=== PATIENT | female | born 1965 | race Caucasian/White ===

== ENCOUNTER 2022-08-26 10:30 | Inpatient (IN) ==
[2022-08-26] MEDS ORDERED: TYLENOL 325 MG TAB PO ONE ×2 (12:01→14:06)
[2022-08-26] MEDS ORDERED: BENADRYL CAP 50 MG PO PRN (12:02)
[2022-08-26 12:09] LABS: LYMPHOCYTES # (AUTO) 0.9 X10^3/uL (1.3-2.9); MEAN PLATELET VOLUME 8.6 fL (7.4-11.0); NEUTROPHILS # (AUTO) 1.8 x10^3/uL (2.2-4.8); PLATELET COUNT 222 X10^3/uL (150.0-450.0); WHITE BLOOD COUNT 2.9 X10^3/uL (3.6-10.0)
[2022-08-26 12:13] LABS: BASOPHILS % (AUTO) 0.7 % (0.2-1.0); EOSINOPHILS % (AUTO) 0.4 % (0.9-2.9); LYMPHOCYTES % (AUTO) 29.7 % (21.0-51.0); MEAN CORPUSCULAR HGB CONC 26.4 g/dL (33.0-35.0); MEAN CORPUSCULAR VOLUME 52.8 fL (80.0-100.0); MONOCYTES # (AUTO) 0.1 x10^3/uL (0.3-0.8); MONOCYTES % (AUTO) 5.1 % (0.0-13.0); NEUTROPHILS % (AUTO) 64.1 % (42.0-75.0); RED BLOOD COUNT 2.76 X10^6/uL (3.5-5.4); RED CELL DISTRIBUTION WIDTH 21.5 % (11.6-16.5); RETICULOCYTE % 2.68 % (0.8-2.2)
[2022-08-26 12:15] LABS: HEMATOCRIT 14.6 % (36.0-47.0); HEMOGLOBIN 3.8 g/dL (12.0-16.0)
[2022-08-26 12:21] LABS: ALANINE AMINOTRANSFERASE 17 Units/L (12-78); ALBUMIN 3.6 g/dL (3.4-5.0); ALKALINE PHOSPHATASE 70 Units/L (46-116); ASPARTATE AMINO TRANSFERASE 11 Units/L (15-37); BLOOD UREA NITROGEN 11 mg/dL (7-18); CARBON DIOXIDE 25.1 mmol/L (21-32); CHLORIDE 108 mmol/L (98-107); COR NA(FOR HYPERGLY) 143 mmol/L (136-145); CREATININE 1.01 mg/dL (0.55-1.02); GLUCOSE 116 mg/dL (65-99); POTASSIUM 3.3 mmol/L (3.5-5.1); SODIUM 143 mmol/L (136-145); TOTAL PROTEIN 6.6 g/dL (6.4-8.2); eGFR NON BLACK RACES > 60 (>60)
[2022-08-26 12:26] LABS: ANISOCYTOSIS 1+; HYPOCHROMASIA 3+; MICROCYTOSIS 3+; PLATELET MORPHOLOGY COMMENT NORMAL (NORMAL); POIKILOCYTOSIS 1+; SCHISTOCYTES PRESENT; TARGET CELLS PRESENT
[2022-08-26 13:10] LABS: IRON 8 ug/dL (50-175); TOTAL IRON BINDING CAPACITY 502 ug/dL (250-450)
[2022-08-26] MEDS ORDERED: POTASSIUM CHL 40 MEQ/NS 0.45% 500 ML IV PRN (13:53)
[2022-08-26] MEDS ORDERED: POTASSIUM CHL 60 MEQ/NS 0.45% 500 ML IV PRN (13:53)
[2022-08-26] MEDS ORDERED: MICRO K EXTEN CAP 10 MEQ PO PRN (13:53)
[2022-08-26] MEDS ORDERED: K-RIDER 10 MEQ/NS 100 ML 10 MEQ/100 ML BAG IV PRN (13:53)
[2022-08-26] MEDS ORDERED: K-DUR TAB 20 MEQ PO PRN (13:53)
[2022-08-26] MEDS ORDERED: POTASSIUM CHLORIDE LIQ 20 MEQ UDC PO PRN (13:53)
[2022-08-26] MEDS ORDERED: KLOR-CON PO PRN (13:53)
[2022-08-26] MEDS ORDERED: BENADRYL CAP/TAB 25 MG PO ONE (14:07)
[2022-08-26] MEDS ORDERED: NS 500 ML IV 500 ML IV ONE ×2 (14:08→17:35)
[2022-08-26] MEDS: PROTONIX INJ 40 MG VIAL IVP SCH ×2 (14:21→20:21)
[2022-08-26] MEDS: PEPCID 20 MG VIAL 20 MG in NS 50 ML IV 50 ML IV SCH ×2 (14:23→20:21)
[2022-08-26] MEDS: NS 1,000 ML IV 1,000 ML IV SCH (14:23)
[2022-08-26 16:15] VITALS: BMI 30.9
[2022-08-26] MEDS: HEMOCYTE-PLUS PO SCH (20:21)
[2022-08-27] MEDS ORDERED: NS 100 ML IV 100 ML ONE (01:27)
[2022-08-27] MEDS: NS 1,000 ML IV 1,000 ML IV SCH (01:37)
[2022-08-27] MEDS: MAGNESIUM SULFATE 1 GRAM/100 mL PREMIX 1 G/100 ML BAG IV PRN ×2 (04:04→05:00)
[2022-08-27 06:10] LABS: BASOPHILS % (AUTO) 0.6 % (0.2-1.0); EOSINOPHILS # (AUTO) 0.1 x10^3/uL (0.0-0.2); EOSINOPHILS % (AUTO) 1.6 % (0.9-2.9); HEMATOCRIT 26.8 % (36.0-47.0); LYMPHOCYTES # (AUTO) 1.1 X10^3/uL (1.3-2.9); MEAN CORPUSCULAR HEMOGLOBIN 21.5 pg (27.0-34.0); MEAN CORPUSCULAR HGB CONC 31.8 g/dL (33.0-35.0); MEAN CORPUSCULAR VOLUME 67.5 fL (80.0-100.0); MEAN PLATELET VOLUME 8.9 fL (7.4-11.0); MONOCYTES # (AUTO) 0.3 x10^3/uL (0.3-0.8); MONOCYTES % (AUTO) 6.4 % (0.0-13.0); NEUTROPHILS # (AUTO) 2.9 x10^3/uL (2.2-4.8); NEUTROPHILS % (AUTO) 66.4 % (42.0-75.0); PLATELET COUNT 181 X10^3/uL (150.0-450.0); RED BLOOD COUNT 3.97 X10^6/uL (3.5-5.4); RED CELL DISTRIBUTION WIDTH 33.4 % (11.6-16.5); WHITE BLOOD COUNT 4.4 X10^3/uL (3.6-10.0)
[2022-08-27 06:24] LABS: HEMOGLOBIN 8.5 g/dL (12.0-16.0)
[2022-08-27 06:34] LABS: ALANINE AMINOTRANSFERASE 14 Units/L (12-78); ALBUMIN 3.3 g/dL (3.4-5.0); ALKALINE PHOSPHATASE 64 Units/L (46-116); ASPARTATE AMINO TRANSFERASE 16 Units/L (15-37); BLOOD UREA NITROGEN 11 mg/dL (7-18); CALCIUM 7.9 mg/dL (8.5-10.1); CHLORIDE 112 mmol/L (98-107); COR CA(FOR HYPOALB) 8.5 mg/dL (8.5-10.1); CREATININE 0.82 mg/dL (0.55-1.02); GLUCOSE 97 mg/dL (65-99); MAGNESIUM 2.2 mg/dL (2.0-2.9); POTASSIUM 3.9 mmol/L (3.5-5.1); SODIUM 145 mmol/L (136-145); eGFR NON BLACK RACES > 60 (>60)
[2022-08-27 06:36] LABS: ANISOCYTOSIS 3+; HYPOCHROMASIA 2+; MICROCYTOSIS 1+; PLATELET MORPHOLOGY COMMENT NORMAL (NORMAL)
[2022-08-27 06:37] LABS: OVALOCYTES SLIGHT; SCHISTOCYTES SLIGHT; TEAR DROP CELLS SLIGHT
[2022-08-27 08:07] VITALS: BP 124/67; PULSE 72; TEMP 98.6
[2022-08-27] MEDS: PROTONIX INJ 40 MG VIAL IVP SCH (08:50)
[2022-08-27] MEDS: PEPCID 20 MG VIAL 20 MG in NS 50 ML IV 50 ML IV SCH (08:51)
[2022-08-27] MEDS: HEMOCYTE-PLUS PO SCH (08:51)
--- NOTE | 2022-08-27 10:34 | DR.CARTERS ---
Short Stay Summary - Admission Date Date of Admission: 08/26/22 - Discharge Date Discharge Date: 08/27/22 - Admission Diagnoses (1) Symptomatic anemia Status: Acute (2) Generalized weakness Status: Acute - Discharge Medications Discharge Medications: Home Medication List B [id number]-[id number] 106 mg iron-1 mg tablet (Ferrocite Plus) 1 tab PO DAILY #30 tabs 08/27/22 [Rx] famotidine 40 mg tablet 40 mg PO BID #60 tabs 08/27/22 [Rx] pantoprazole 40 mg tablet,delayed release 40 mg PO BID #60 tabs 08/27/22 [Rx] Prescriptions: B [id number]-U-[id number]-[id number] [Ferrocite Plus] Matthias Rockwell famotidine Matthias Rockwell pantoprazole Matthias Rockwell - Hospital Course Hospital Course: IS A 56 YEAR OLD PATIENT OF KARY ROE. SHE REPORTED BEING SEEN IN HIS OFFICE YESTERDAY DUE TO SEVERE WEAKNESS AND DIZZINESS. SHE WAS SENT FOR OUTPATIENT LABS. HER HEMOGLOBIN WAS REPORTED TO BE 4.2 AND HCT 16.1. DECISION WAS MADE TO ADMIT THE PATIENT TO THE HOSPITAL FOR FURTHER EVALUATION AND TREATMENT OF SYMPTOMATIC ANEMIA. HER ONLY REPORTED MEDICAL HISTORY IS IRON DEFICIENCY ANEMIA. SHE DOES NOT CURRENTLY TAKE ANY MEDICATIONS. SHE DENIES PRESENCE OF BLOOD IN STOOL OR ANY VAGINAL BLEEDING. ON ARRIVAL TO THE HOSPITAL, VITALS WERE 98.3-116-20-97%-133/60. LABS WERE REPEATED. WBC 2.9, RBC 2.76, HGB 3.8, HCT 14.6, PLT COUNT 222, SODIUM 143, POTASSIUM 3.3, CHLORIDE 108, CARBON DIOXIDE 25.1, BUN 11, CREATININE 1.01, GLUCOSE 116, CALCIUM 8.0, MAGNESIUM 1.8, IRON 8, TIBC 502, TOTAL BILI 0.80, AST 11, ALT 17, ALK PHOS 70, TOTAL PROTEIN 6.6, ALBUMIN 3.6, VITAMIN B12 336. WE OBTAINED A TYPE AND SCREEN AND CROSSMATCHED FOUR UNITS OF PACKED RED BLOOD CELLS. WE PLANNED TO TRANSFUSE FOUR UNITS WHEN THEY WERE AVAILABLE. SHE WAS STARTED ON NORMAL SALINE AT 80 ML/HR, FAMOTIDINE 20MG Q12H, PROTONIX 40MG IV BID, PROTONIX 40MG IV BID, HEMOCYTE PLUS DAILY, AND THE POTASSIUM AND MAGNESIUM PROTOCOLS. WE WILL PREMEDICATE WITH BENADRYL 25MG AND TYLENOL 650MG BEFORE TRANSFUSION OF BLOOD. WE PLANNED TO CONSULT , MEDICATION TECHNICIAN. PATIENT REFUSED CONSULT AND STATED THAT SHE ALREADY HAD A REFERRAL SENT IN TO DR.RONNIE CASON IN [place], [place]. SHE PREFERRED TO SEE HIM AN OUTPATIENT. WE ORDERED STOOLS FOR OCCULT BLOOD. OTHERWISE, WE PLANNED TO FOLLOW-UP WITH AM LABS AND CONTINUE TO MONITOR. ON THE MORNING FOLLOWING ADMISSION, PATIENT IS ALERT AND ORIENTED, LYING IN BED. SHE HAS RECEIVED FOUR UNITS OF PACKED RED BLOOD CELLS SINCE ADMISSION. SHE REPORTS FEELING MUCH BETTER AND DENIES CURRENT COMPLAINS. SHE IS REQUESTING DISCHARGE HOME. ON EXAMINATION, HEART IS REGULAR IN RATE AND RHYTHM. BILATERAL LUNGS ARE CLEAR TO AUSCULTATION. ABDOMEN IS ROUND, SOFT, AND NON-TENDER WITH NORMAL BOWEL SOUNDS NOTED IN ALL QUADRANTS. GOOD MOVEMENT TO UPPER AND LOWER EXTREMITIES WITH NO EDEMA NOTED. HER VITALS THIS MORNING ARE: 98.6-72-16-98%-124/67. LABS WERE OBTAINED. WBC 4.4, RBC 3.97, HGB 8.5, HCT 26.8, PLT COUNT 181, SODIUM 145, POTASSIUM 3.9, CHLORIDE 112, CARBON DIOXIDE 22.0, BUN 11, CREATININE 0.82, GLUCOSE 97, CALCIUM 7.9, MAGNESIUM 2.2, TOTAL BILI 2.90, AST 16, ALT 14, ALK PHOS 64, TOTAL PROTEIN 6.0, ALBUMIN 3.3. WE PLANNED FOR DISCHARGE. INSTRUCTIONS FOR MEDICATIONS AND FOLLOW-UP WERE DISCUSSED WITH PATIENT. SHE VERBALIZED UNDERSTANDING OF ALL ORDERS. WE WILL GIVE HER NEW PRESCRIPTIONS FOR FAMOTIDINE 40MG BID, PANTOPRAZOLE 40MG BID, AND HEMOCYTE PLUS 1 TABLET DAILY. WE WILL HAVE HER FOLLOW UP WITH [facility] AND DR.RONNIE CASON, MEDICATION TECHNICIAN. SHE WILL BE DISCHARGE HOME WITH FAMILY IN STABLE CONDITION. TIME SPENT ON CLINICAL ASSESSMENT, REVIEWING LABS AND IMAGING, DECISION MAKING, DISCHARGE INSTRUCTIONS, PREPARING DISCHARGE PAPERS, AND DOCUMENTATION GREATER THAN 45 MINUTES. - Discharge Plan Disposition: 01 HOME, SELF-CARE Condition: Stable Prescriptions: B [id number]-[id number] [Ferrocite Plus] 1 tab PO DAILY #30 tabs famotidine 40 mg PO BID #60 tabs pantoprazole 40 mg PO BID #60 tabs - Follow up/Referrals Follow up/Referrals: KARY ROE [Primary Care Provider] - 09/03/22 10:00 am - Instructions Instructions: Anemia Additional Instructions: DIET TOLERATED. ACTIVITY TOLERATED. Forms: Excuse From Work or School
== END 2022-08-27 11:45 | disposition home or self-care (01) | DRG 812 ==
LOC: MED/SURG 11:10
PROVIDERS: ADMIT Internal Medicine; ATTEND Internal Medicine
DX: R42 Dizziness and giddiness; D64.89 Other specified anemias; R53.1 Weakness

== ENCOUNTER 2024-03-22 10:50 | Observation (INO) ==
[2024-03-22 12:51] LABS: BASOPHILS # (AUTO) 0.1 X10^3/uL (0.0-0.1); BASOPHILS % (AUTO) 1.2 % (0.2-1.0); EOSINOPHILS % (AUTO) 0.1 % (0.9-2.9); LYMPHOCYTES # (AUTO) 0.9 X10^3/uL (1.3-2.9); LYMPHOCYTES % (AUTO) 19.5 % (21.0-51.0); MEAN CORPUSCULAR HEMOGLOBIN 19.4 pg (27.0-34.0); MEAN CORPUSCULAR HGB CONC 30.3 g/dL (33.0-35.0); MEAN CORPUSCULAR VOLUME 63.9 fL (80.0-100.0); MEAN PLATELET VOLUME 9.3 fL (7.4-11.0); MONOCYTES # (AUTO) 0.2 x10^3/uL (0.3-0.8); NEUTROPHILS # (AUTO) 3.6 x10^3/uL (2.2-4.8); NEUTROPHILS % (AUTO) 74.2 % (42.0-75.0); PLATELET COUNT 281 X10^3/uL (150.0-450.0); RED BLOOD COUNT 3.11 X10^6/uL (3.5-5.4); RED CELL DISTRIBUTION WIDTH 17.6 % (11.6-16.5); WHITE BLOOD COUNT 4.8 X10^3/uL (3.6-10.0)
[2024-03-22 12:54] LABS: HEMATOCRIT 19.9 % (36.0-47.0)
[2024-03-22 12:58] LABS: ALANINE AMINOTRANSFERASE 17 Units/L (12-78); ALBUMIN 3.3 g/dL (3.4-5.0); ALKALINE PHOSPHATASE 100 Units/L (46-116); ASPARTATE AMINO TRANSFERASE 12 Units/L (15-37); BLOOD UREA NITROGEN 11 mg/dL (7-18); CALCIUM 8.3 mg/dL (8.5-10.1); CARBON DIOXIDE 25.5 mmol/L (21-32); CHLORIDE 107 mmol/L (98-107); COR CA(FOR HYPOALB) 8.9 mg/dL (8.5-10.1); COR NA(FOR HYPERGLY) 143 mmol/L (136-145); CREATININE 0.89 mg/dL (0.55-1.02); GLUCOSE 113 mg/dL (65-99); POTASSIUM 3.9 mmol/L (3.5-5.1); SODIUM 143 mmol/L (136-145); TOTAL PROTEIN 6.9 g/dL (6.4-8.2); eGFR NON BLACK RACES > 60 (>60)
[2024-03-22 13:12] LABS: ANISOCYTOSIS SLIGHT; HYPOCHROMASIA 3+; MICROCYTOSIS 2+; PLATELET MORPHOLOGY COMMENT NORMAL (NORMAL)
--- NOTE | 2024-03-22 13:15 | EKG ---
Test Reason : Hgb 6.0 Blood Pressure : */* mmHG Vent. Rate : 86 BPM Atrial Rate : 86 BPM P-R Int : 160 ms QRS Dur : 76 ms QT Int : 364 ms P-R-T Axes : 23 62 47 degrees QTc Int : 435 ms Normal sinus rhythm Normal ECG No previous ECGs available Confirmed by Bhupinder Galeas MD ([id number]) on 03/23/2024 7:27:53 AM Referred By: Confirmed By: Bhupinder Galeas MD
--- NOTE | 2024-03-22 13:58 | DR.DIZZY ---
HPI Time seen Time Seen by Provider: 03/22/24 13:31 PCP Primary Care Physician: LILIAN MCKEON Complaint Chief Complaint:: Patient states she has been feeling weak for a couple of weeks now states last time she felt like this her hemoglobin was low. patient states she just wants to make sure its not low again. patient denies any other symptoms. COVID-19 Coronavirus risk:travel/contact w/high risk person: No Has patient experienced Coronavirus symptoms: No Nurses Notes Reviewed Nurses Notes Review: Yes Source History Provided: Patient Mode of Arrival Mode of Arrival: Ambulatory Timing Onset of Chief Complaint: 03/02/24 Context Stroke Symptoms: None PMH PMH Past Medical History: Yes Past Medical History: Anemia Past Surgical History: No Family History History of Family Medical Conditions: No Social History Does patient currently use any type of tobacco product: No Have you used tobacco products in the last 12 months: No Type of Tobacco Use: None Does any household member use tobacco: No Alcohol Use: None Do you use any recreational Drugs:: No Lives With: Family Lives Where: Home Travel Risk Coronavirus risk:travel/contact w/high risk person: No Has patient experienced Coronavirus symptoms: No Infectious screening In the last 2 months have you had wt loss of >10#?: NO Have you had fever, night sweats or hemotysis?: No Have you traveled outside the country in the last 6 months?: No Isolation: Standard ROS Review of Systems All Other Systems: Reviewed and Negative (See HPI, otherwise negative) PE Vital Signs Vitals: Vital Signs Temperature 98 F Pulse Rate 109 Respiratory Rate 18 Blood Pressure 126/70 O2 Sat by Pulse Oximetry 100 General General Appearance: Alert Head Head Exam: Normal Inspection Eyes Eye exam: Normal Appearance ENT ENT Exam: Normal Exam Neck Neck Exam: Normal Inspection Chest Chest Inspection: Normal Inspection Respiratory Respiratory Exam: Normal Lung Sounds Bilat Cardiovascular Cardiovascular Exam: Regular Rate Abdominal Exam Abdominal Exam: Normal Inspection Extremeties Extremities Exam: Normal Inspection Neurologic Neurological Exam: Alert, Oriented X3 and CN II-XII Intact; negative Motor Sensory Deficit Skin Skin Exam: Warm MDM Differential Diagnosis Differential Diagnosis Comment: anemia COURSE Reevaluation 1st: Improved Consultation Called: 14:01 Call Returned: 14:01 Education/Counseling Education/Counseling: Patient and Family ROR Labs Reviewed Laboratory Results Reviewed?: Yes 03/22/24 12:33 03/22/24 12:33 Laboratory: WBC 4.8 X10^3/uL (3.6-10.0) 03/22/24 12:33 RBC 3.11 X10^6/uL (3.5-5.4) L 03/22/24 12:33 Hgb 6.0 g/dL (12.0-16.0) L* 03/22/24 12:33 Hct 19.9 % (36.0-47.0) L* 03/22/24 12:33 MCV 63.9 fL (80.0-100.0) L 03/22/24 12:33 MCH 19.4 pg (27.0-34.0) L 03/22/24 12:33 MCHC 30.3 g/dL (33.0-35.0) L 03/22/24 12:33 RDW 17.6 % (11.6-16.5) H 03/22/24 12:33 Plt Count 281 X10^3/uL (150.0-450.0) 03/22/24 12:33 Plt Count Comment Adequate (ADEQUATE) 03/22/24 12:33 MPV 9.3 fL (7.4-11.0) 03/22/24 12:33 Neut % (Auto) 74.2 % (42.0-75.0) 03/22/24 12:33 Lymph % (Auto) 19.5 % (21.0-51.0) L 03/22/24 12:33 [place] % (Auto) 5.0 % (0.0-13.0) 03/22/24 12:33 Eos % (Auto) 0.1 % (0.9-2.9) L 03/22/24 12:33 Baso % (Auto) 1.2 % (0.2-1.0) H 03/22/24 12:33 Neut # (Auto) 3.6 x10^3/uL (2.2-4.8) 03/22/24 12:33 Lymph # (Auto) 0.9 X10^3/uL (1.3-2.9) L 03/22/24 12:33 [place] # (Auto) 0.2 x10^3/uL (0.3-0.8) L 03/22/24 12:33 Eos # (Auto) 0.0 x10^3/uL (0.0-0.2) 03/22/24 12:33 Baso # (Auto) 0.1 X10^3/uL (0.0-0.1) 03/22/24 12:33 Absolute Nucleated RBC 0.3 /100WBC 03/22/24 12:33 Plt Morphology Comment Normal (NORMAL) 03/22/24 12:33 RBC Morphology Abnormal (NORMAL) A 03/22/24 12:33 Hypochromasia 3+ A 03/22/24 12:33 Anisocytosis Slight A 03/22/24 12:33 Microcytosis 2+ A 03/22/24 12:33 APTT 23.0 SECONDS (22.9-36.5) 03/22/24 12:30 PTT Comment - 03/22/24 12:30 Sodium 143 mmol/L (136-145) 03/22/24 12:33 Corrected Sodium 143 mmol/L (136-145) 03/22/24 12:33 Potassium 3.9 mmol/L (3.5-5.1) 03/22/24 12:33 Chloride 107 mmol/L (98-107) 03/22/24 12:33 Carbon Dioxide 25.5 mmol/L (21-32) 03/22/24 12:33 BUN 11 mg/dL (7-18) 03/22/24 12:33 Creatinine 0.89 mg/dL (0.55-1.02) 03/22/24 12:33 Est GFR (MDRD) Af Amer > 60 (>60) 03/22/24 12:33 Est GFR (MDRD) Non-Af > 60 (>60) 03/22/24 12:33 Glucose 113 mg/dL (65-99) H 03/22/24 12:33 Calcium 8.3 mg/dL (8.5-10.1) L 03/22/24 12:33 Corrected Calcium 8.9 mg/dL (8.5-10.1) 03/22/24 12:33 Total Bilirubin 0.60 mg/dL (0.2-1.0) 03/22/24 12:33 AST 12 Units/L (15-37) L 03/22/24 12:33 ALT 17 Units/L (12-78) 03/22/24 12:33 Alkaline Phosphatase 100 Units/L (46-116) 03/22/24 12:33 Total Protein 6.9 g/dL (6.4-8.2) 03/22/24 12:33 Albumin 3.3 g/dL (3.4-5.0) L 03/22/24 12:33 Globulin 3.6 g/dL (2.5-4.5) 03/22/24 12:33 Albumin/Globulin Ratio 0.9 Ratio (1.1-2.1) L 03/22/24 12:[address]: Nonsp Opioid Opioid Risk Tool Age (Kam box if 16-45): No History of Preadolescent Sexual Abuse: No Total: 0 Total Score Risk Category: Low Risk Copyright: Warren GEORGE predicting aberrant behaviors Discharge Plan Diagnosis Discharge Problem: Symptomatic anemia Discharge Plan Patient Disposition: ADMITTED INPATIENT Condition: Stable Prescriptions: No Action pantoprazole 40 mg Tablet,Delayed Release (Dr/Ec) 40 mg PO BID Qty: 60 1RF Rx Instructions: TAKE ONE TABLET TWICE A DAY Health Concerns: Post Hospitalization: new medications and changes needed to prevent readmission or further decline. Pt educated and given instructions on all concerns. Plan of Treatment: Continue with present treatment and follow up plan. Pt is to keep follow up appointment as instructed and take medications as ordered. Follow ups/Referrals Follow ups/Referrals: LILIAN MCKEON V [Primary Care Provider] - 3 days
[2024-03-22 15:50] VITALS: BMI 32.9
[2024-03-22] MEDS: NS 250 ML IV 25 ML IV PRN (16:55)
[2024-03-22] MEDS ORDERED: CONSULT PHARMACY - POTASSIUM & MAGNESIUM XX SCH (17:02)
[2024-03-23 01:38] LABS: HEMATOCRIT 24.2 % (36.0-47.0); HEMOGLOBIN 7.8 g/dL (12.0-16.0)
[2024-03-23 05:54] LABS: BASOPHILS % (AUTO) 0.8 % (0.2-1.0); EOSINOPHILS # (AUTO) 0.1 x10^3/uL (0.0-0.2); EOSINOPHILS % (AUTO) 1.1 % (0.9-2.9); HEMATOCRIT 23.9 % (36.0-47.0); HEMOGLOBIN 7.7 g/dL (12.0-16.0); LYMPHOCYTES # (AUTO) 1.4 X10^3/uL (1.3-2.9); LYMPHOCYTES % (AUTO) 26.4 % (21.0-51.0); MEAN CORPUSCULAR HEMOGLOBIN 22.6 pg (27.0-34.0); MEAN CORPUSCULAR HGB CONC 32.5 g/dL (33.0-35.0); MEAN CORPUSCULAR VOLUME 69.5 fL (80.0-100.0); MONOCYTES # (AUTO) 0.5 x10^3/uL (0.3-0.8); MONOCYTES % (AUTO) 8.6 % (0.0-13.0); NEUTROPHILS # (AUTO) 3.4 x10^3/uL (2.2-4.8); NEUTROPHILS % (AUTO) 63.1 % (42.0-75.0); PLATELET COUNT 236 X10^3/uL (150.0-450.0); RED BLOOD COUNT 3.43 X10^6/uL (3.5-5.4); RED CELL DISTRIBUTION WIDTH 23.7 % (11.6-16.5); WHITE BLOOD COUNT 5.5 X10^3/uL (3.6-10.0)
[2024-03-23 06:06] LABS: ALANINE AMINOTRANSFERASE 13 Units/L (12-78); ALBUMIN 2.8 g/dL (3.4-5.0); ALKALINE PHOSPHATASE 83 Units/L (46-116); ASPARTATE AMINO TRANSFERASE 13 Units/L (15-37); BLOOD UREA NITROGEN 14 mg/dL (7-18); CALCIUM 7.9 mg/dL (8.5-10.1); CARBON DIOXIDE 24.2 mmol/L (21-32); CHLORIDE 109 mmol/L (98-107); COR CA(FOR HYPOALB) 8.9 mg/dL (8.5-10.1); CREATININE 0.84 mg/dL (0.55-1.02); GLUCOSE 88 mg/dL (65-99); POTASSIUM 3.7 mmol/L (3.5-5.1); SODIUM 144 mmol/L (136-145); eGFR NON BLACK RACES > 60 (>60)
[2024-03-23 07:05] LABS: ANISOCYTOSIS 2+; HYPOCHROMASIA 1+; MICROCYTOSIS 1+; PLATELET MORPHOLOGY COMMENT NORMAL (NORMAL)
[2024-03-23 08:35] VITALS: TEMP 97.6
[2024-03-23] MEDS: INFeD or DEXFERRUM 25 MG in NS 100 ML IV 100 ML IV ONE (09:05)
[2024-03-23] MEDS: HEMOCYTE PLUS PO SCH (09:22)
[2024-03-23] MEDS: INFeD or DEXFERRUM 975 MG in NS 500 ML IV 500 ML IV NR (10:55)
[2024-03-23 15:51] VITALS: BP 140/80; PULSE 80; RESP 18; O2SAT 95
== END 2024-03-23 16:28 | disposition home or self-care (01) ==
LOC: ICU 10:50 → ER 10:50 → MED/SURG 10:50 → ICU 15:17
PROVIDERS: ADMIT Internal Medicine; ATTEND Internal Medicine
DX: D64.89 Other specified anemias; Z66 Do not resuscitate